=== PATIENT | female | born 1980 | race Caucasian/White ===

== ENCOUNTER 2017-11-29 18:37 | Emergency (ER) | payer SELFPAY | END 2017-11-29 22:36 | disposition left against medical advice (07) | LOC: E/R 18:37 | DX: Z53.21 Procedure and treatment not carried out due to patient leaving prior to being seen by health care provider (principal) ==

== ENCOUNTER 2019-07-21 03:51 | Emergency (ER) | payer OTHER ==
[2019-07-21] MEDS: IBUPROFEN 600 MG TAB PO (04:13)
== END 2019-07-21 05:45 | disposition home or self-care (01) ==
LOC: E/R 03:51
DX: S60.221A Contusion of right hand, initial encounter (principal); S80.01XA Contusion of right knee, initial encounter; R40.2142 Coma scale, eyes open, spontaneous, at arrival to emergency department; R40.2362 Coma scale, best motor response, obeys commands, at arrival to emergency department; R40.2252 Coma scale, best verbal response, oriented, at arrival to emergency department; F17.210 Nicotine dependence, cigarettes, uncomplicated; V18.4XXA Pedal cycle driver injured in noncollision transport accident in traffic accident, initial encounter
CPT/HCPCS: 73130; 73130-RT; 73562; 99284-25